=== PATIENT | male | born 1950 | race Caucasian/White ===

== ENCOUNTER 2019-11-14 22:10 | Emergency (ER) | payer MEDICARE, BC ==
[2019-11-14 22:15] VITALS: BP 139/74; PULSE 83
[2019-11-14] MEDS ORDERED: Sodium Chloride 0.9% 10 ML Syringe FLUSH PRN (22:18)
[2019-11-14 22:45] LABS: PTT,PARTIAL THROMBOPLSTIN TIME 24.5 SEC (24.5-32.8)
[2019-11-14] MEDS ORDERED: Lactated Ringers 1,000 ML IV ONE (23:13)
--- NOTE | 2019-11-14 23:27 | EDM.PDOC ---
ED HPI GENERAL MEDICAL PROBLEM - General Chief Complaint: Respiratory Problem Stated Complaint: shortness of breath Time Seen by Provider: 11/14/19 22:10 Source of Information: Reports: Patient, Old Records ([facility] chart/EMR) History Limitations: Reports: No Limitations - History of Present Illness INITIAL COMMENTS - FREE TEXT/NARRATIVE: Patient drove himself to the emergency room via private automobile for evaluation of progressive mild dyspnea during the last couple of days with nonproductive cough, however no known exposure to infection or fever. The patient denies any chest pain/pressure, heart flutter, dizziness, orthostasis, orthopnea, diaphoresis, paresthesias, recent decreased exercise tolerance, or any other anginal-type symptoms. No recent history of abdominal pain, heartburn, nausea, diarrhea, melena, gross hematochezia, or any food intolerance, including fatty foods, etc.. The patient did use his nebulizer therapy this morning with his inhaler used shortly prior to arrival to this facility. He denies any specific pain or discomfort. Onset: Gradual Onset Date: 11/12/19 Duration: Getting Worse, Intermittent Location: Reports: Other (No pain) Quality: Reports: Same as Previous Episode Improves with: Reports: None Worsens with: Reports: None Context: Reports: Other (As above). Denies: Sick Contact, Trauma Associated Symptoms: Reports: Cough, Shortness of Breath. Denies: Confusion, Chest Pain, cough w sputum, Diaphoresis, Fever/Chills, Headaches, Loss of Appetite, Malaise, Nausea/Vomiting, Weakness Treatments QUEBRACHO TANNER: Reports: Other Medication(s) (As above) - Related Data Allergies Allergy/AdvReac Type Severity Reaction Status Date / Time morphine Allergy Itching Verified 03/05/16 13:10 Home Meds: Home Meds Acetaminophen with Codeine [Tylenol with Codeine #3 Tablet] 1 each PO Q4HR PRN 03/05/16 [History] Albuterol [Proventil Neb Soln] 0.63 mg NEB Q4HRRT 03/05/16 [History] Aspirin [Ecotrin EC] 81 mg PO DAILY 03/05/16 [History] Clopidogrel [Plavix] 75 mg PO DAILY 03/05/16 [History] Isosorbide Mononitrate [Imdur] 60 mg PO DAILY 03/05/16 [History] Metoprolol Succinate [Toprol XL 50mg] 50 mg PO DAILY 03/05/16 [History] Nitroglycerin [Nitrostat] 0.4 mg SL ASDIRECTED PRN 03/05/16 [History] Omeprazole Magnesium [Prilosec Otc] 20 mg PO BID 03/05/16 [History] Terazosin [Hytrin] 2 mg PO BEDTIME 03/05/16 [History] allopurinoL [Allopurinol] 300 mg PO DAILY 03/05/16 [History] atorvaSTATin [Lipitor] 40 mg PO BEDTIME 03/05/16 [History] Arformoterol [Brovana] 2 ml IH BID 11/15/19 [History] Budesonide [Pulmicort] 0.5 mg IH BID 11/15/19 [History] Dextromethorphan/guaiFENesin [Mucinex DM ER 600-30 MG] 1 tab PO BID #20 tab.er 11/15/19 [Rx] Past Medical History HEENT History: Reports: Cataract, Hard of Hearing, Impaired Vision, Other (See Below). Denies: Allergic Rhinitis, Glaucoma, Macular Degeneration, Otitis Media, Retinal Detachment Other HEENT History: The patient wears glasses, mild beginning bilateral presbycusis with no current therapy, developing cataracts with no surgery to this point Cardiovascular History: Reports: Arrhythmia, CAD, High Cholesterol, Hypertension, PTCA, Stents, Other (See Below). Denies: Afib, Aneurysm, Blood Clots/VTE/DVT, Bypass, Cardiomyopathy, Heart Failure, Heart Murmur, GA, PVD Other Cardiovascular History: Sinus arrhythmia, heart procedures as below Respiratory History: Reports: Bronchitis, Recurrent, COPD, Intubation, Previous, Pneumonia, Recurrent, Pulmonary Fibrosis. Denies: Intubation, Difficult, PE, Pneumothorax, Sleep Apnea, TB Gastrointestinal History: Reports: GERD, PUD. Denies: Bowel Obstruction, Celiac Disease, Cholelithiasis, Chronic Constipation, Chronic Diarrhea, Colon Polyp, Fecal Incontinence, Gastritis, GI Bleed, Hepatitis, Inflammatory Bowel Disease, Irritable Bowel Syndrome, Jaundice, Pancreatitis Genitourinary History: Reports: BPH. Denies: Acute Renal Failure, Chronic Renal Insuffiency, Renal Calculus, Retention, Urinary, STD, Urinary Incontinence, UTI, Recurrent Musculoskeletal History: Reports: Arthritis, Gout, Osteoarthritis, Other (See Below). Denies: Back Pain, Chronic, Fracture, Neck Pain, Chronic, RA, SLE Other Musculoskeletal History: Compartment syndrome of the left forearm requiring surgery as below, bilateral carpal tunnel syndrome with no previous surgery, traumatic injury in April 2006 resulting in decreased range of motion of digits #3 and 4 of the left hand Neurological History: Reports: None. Denies: Cerebral Aneurysms, CVA, Headaches, Chronic, Head Trauma, Migraines, MS, Parkinson's, Seizure, TIA Psychiatric History: Reports: None. Denies: Abuse, Victim of, ADD, Addiction, Anxiety, Depression, Psych Hospitalization(s), PTSD, Suicide Attempt, Suicidal Ideation Endocrine/Metabolic History: Reports: Other (See Below). Denies: Diabetes, Type I, Diabetes, Type II, Diabetes Mellitus, Type 3c, Hypothyroidism, IDDM Other Endocrine/Metabolic History: History of borderline hyperglycemia per medical records treated with diet Hematologic History: Reports: None. Denies: Anemia, Blood Transfusion(s), Iron Deficiency Immunologic History: Reports: None. Denies: AIDS, HIV, SLE Oncologic (Cancer) History: Reports: None. Denies: Colon, Hodgkin's Lymphoma, Leukemia, Lymphoma, Malignant Melanoma, Non-Hodgkin's Lymphoma, Prostate, Squamous Cell Carcinoma Dermatologic History: Reports: None. Denies: Eczema, Psoriasis - Infectious Disease History Infectious Disease History: Reports: Chicken Pox, Measles, Mumps. Denies: C- Difficile, Meningitis, Mononucleosis, MRSA, Novel Coronavirus, Pertussis (Whooping Cough), Rheumatic Fever, Rubella, Scarlet Fever, Shingles, TB, VRE - Past Surgical History Head Surgeries/Procedures: Reports: None HEENT Surgical History: Reports: Adenoidectomy, Oral Surgery, Tonsillectomy, Other (See Below). Denies: Cataract Surgery, Eye Surgery, Laser Surgery, LASIK, Myringotomy w Tube(s), Naso-Sinus Surgery Other HEENT Surgeries/Procedures: [place] teeth extraction 4 at about age 28 with additional multiple teeth extractions Cardiovascular Surgical History: Reports: Coronary Artery Stent, Percutaneous Transluminal Angioplasty, Other (See Below). Denies: Varicose Other Cardiovascular Surgeries/Procedures: PTCA/stent of the inferior LAD in April 2006. PTCA/stent of the left main artery on 12/31/15. Respiratory Surgical History: Reports: None. Denies: Thoracentesis GI Surgical History: Reports: Appendectomy, Colonoscopy, Other (See Below). Denies: Cholecystectomy, EGD, Hernia, Abdominal, Hernia, Inguinal, Hernia Repair/Other, Polypectomy Other GI Surgeries/Procedures: Appendectomy at age 17. Male Surgical History: Reports: Circumcision, Vasectomy, Other (See Below) Other Male Surgeries/Procedures: Circumcision as an infant. Vasectomy at about age 33. Endocrine Surgical History: Reports: None. Denies: Thyroid Biopsy Neurological Surgical History: Reports: None. Denies: C-Spine, Discectomy, Laminectomy, Lumbar Spine, Sacral Spine, Scoliosis, Spinal Fusion, Thoracic Spine Musculoskeletal Surgical History: Reports: Other (See Below). Denies: Arthroscopic Procedure, Carpal Tunnel, Ganglion Cyst, Joint Replacement, ORIF, Shoulder Surgery Other Musculoskeletal Surgeries/Procedures:: Left forearm fasciotomy secondary to compartment syndrome from injury in April 2006. Oncologic Surgical History: Reports: None Dermatological Surgical History: Reports: None - Past Imaging History Past Imaging History: Reports: Angiography (Last heart catheterization on 12/31/15 with ejection fraction of 65%.), Stress Testing (Low-level cardiac stress test on 01/13/16.) Social & Family History - Family History HEENT: Reports: None. Denies: Glaucoma, Macular Degeneration, Retinal Detachment Cardiac: Reports: Aneurysm, CAD, Heart Failure, Hypertension, GA, PVD/COD, Other (See Below) Other Cardiac Family History: Mother with coronary artery disease with fatal CHF at age 83. She also had bilateral carotid endarterectomy, paternal uncle with fatal GA at about age 37, maternal uncle with fatal GA in his 70s, hypertension in mother and maternal uncle, father with fatal rupture abdominal aortic aneurysm at age 69 Respiratory: Reports: COPD, Other (See Below). Denies: PE, Pneumothorax, Sleep Apnea Other Respiratory Family Hisory: Father with COPD with history of tobacco use GI: Reports: Diverticulosis : Reports: None. Denies: Renal Calculus, Renal Disease/Insufficiency OBGYN: Reports: None. Denies: Endometriosis, Recurrent Spontaneous Musculoskeletal: Reports: None. Denies: Gout, RA, SLE Neurological: Reports: None. Denies: Alzheimers Disease, Cerebral Aneurysms, CVA, Dementia, Migraines, Parkinson's, Seizure, TIA Psychiatric: Reports: None. Denies: Abuse, Victim of, ADD, ADHD, Anxiety, Depression, Psych Hospitalization(s), PTSD, Suicide Attempt Endocrine/Metabolic: Reports: None. Denies: Diabetes, Type I, Diabetes, type II, Diabetes Mellitus, Type 3c, Hypothyroidism, IDDM Hematologic: Reports: None. Denies: SLE Immunologic: Reports: None. Denies: AIDS, HIV, SLE Dermatologic: Reports: None. Denies: Eczema, Psoriasis Oncologic: Reports: Colon, Lung, Metastatic, Other (See Below). Denies: Hodgkin's Lymphoma, Leukemia, Non-Hodgkin's Lymphoma, Prostate, Skin Other Oncologic Family History: Mother with history of metastatic lung cancer likely secondary to tobacco use, maternal grandfather with fatal stomach cancer in his 80s, paternal uncle with possible fatal cancer at age 70, maternal uncle with colon cancer in his 70s - Tobacco Use Smoking Status *Q: Former Smoker Tobacco Use Within Last Twelve Months: No Years of Tobacco use: 4 Packs/Tins Daily: 4 Packs/Tins Daily Comment: The patient smoked 14 packs per day between ages 17 and 21. Subsequent chewing tobacco use of one can per week for about 6 years with last cigarette use in 1972 and chewing tobacco use in 2005. Used Tobacco, but Quit: Yes Smoking Cessation Information Provided To Patient: No Second Hand Smoke Exposure: No Second Hand Smoke Education Provided: No - Caffeine Use Caffeine Use: Reports: Soda. Denies: Coffee, Energy Drinks, Tea Caffeine Use Comment: 2-3 sodas per day - Alcohol Use Alcohol Use History: Yes Days Per Week of Alcohol Use: 7 Number of Drinks Per Day: 3 Number of Drinks Per Day Comment: Usually beer. No previous DWIs, problems with alcohol abuse, etc. Total Drinks Per Week: 21 Alcohol Use in Last Twelve Months: Yes Alcohol Use Frequency: Daily - Recreational Drug Use Recreational Drug Use: Yes Drug Use in Last 12 Months: No Recreational Drug Type: Reports: Marijuana/Hashish (Experimentation in 1971). 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 No: Normal Teeth (Multiple missing teeth; dentition and somewhat poor repair), Dysphagia, Perioral Cyanosis Head: Atraumatic, Normocephalic. No: Facial Swelling, Facial Tenderness, Sinus Tenderness Neck: Supple, Non-Tender, Full Range of Motion, Carotid Bruit (Bilateral carotid bruitsmild). No: Lymphadenopathy (L), Lymphadenopathy (R), Thyromegaly Respiratory/Chest: No Respiratory Distress, Lungs Clear, Normal Breath Sounds, No Accessory Muscle Use, Chest Non-Tender. No: Pleural Rub, Retractions Cardiovascular: Normal Peripheral Pulses, Regular Rate, Rhythm, No Edema, No Gallop, No JVD, No Murmur, No Rub. No: Gallop/S3, Gallop/S4, Friction Rub Peripheral Pulses: 2+: Radial (L), Radial (R) GI/Abdominal: Normal Bowel Sounds, Soft, Non-Tender, No Organomegaly, No D istention, No Abnormal Bruit, No Mass (Male) Exam: Deferred Rectal (Males) Exam: Deferred Back Exam: Normal Inspection, Full Range of Motion. No: CVA Tenderness (L), CVA Tenderness (R) Extremities: Normal Inspection, Normal Range of Motion, Non-Tender, No Pedal Edema, Normal Capillary Refill. No: Arlene's Sign Neurological: Alert, Oriented, CN II-XII Intact, Normal Cognition, Normal Gait, No Motor/Sensory Deficits Psychiatric: Anxious (Moderate). No: Depressed Mood Skin Exam: Warm, Dry, Intact, Normal Color, No Rash. No: Diaphoretic, Ecchymosis, Petechiae, Wound/Incision Lymphatic: No Adenopathy Course - Vital Signs Last Recorded V/S: Last Vital Signs Temp 36.6 C 11/14/19 22:10 Pulse 83 11/14/19 22:10 Resp 20 11/14/19 22:10 BP 139/74 11/14/19 22:10 Pulse Ox 98 11/14/19 22:18 Vital Signs - 24 hr 11/14/19 11/14/19 22:10 22:18 Temperature [ 36.6 C Oral] Pulse, 83 Peripheral [ Left Pulse Oximetry] Respiratory 20 Rate Blood Pressure 139/74 [Left Upper Arm ] O2 Sat by Pulse 99 Oximetry O2 Sat by Pulse 98 Oximetry [Room Air] - Orders/Labs/Meds Orders: Active Orders 24 hr Category Date Time Status Cardiac Monitoring [RC] CONTINUOUS Care 11/14/19 22:18 Active Communication Order [RC] ROUTINE Care 11/14/19 22:18 Active Oxygen Therapy, ED [RC] PRN Care 11/14/19 22:18 Active Peripheral IV Care [RC] . DIRECTED Care 11/14/19 22:18 Active Pulse Oximetry [RC] CONTINUOUS Care 11/14/19 22:18 Active Up With Assistance [RC] ASDIRECTED Care 11/14/19 22:18 Active Chest 2V [CR] Stat Exams 11/14/19 22:18 Taken CULTURE BLOOD [BC] Stat Lab 11/14/19 22:25 Received CULTURE BLOOD [BC] Stat Lab 11/14/19 23:00 Received Blood Culture x2 Reflex Set [OM.PC] Stat Oth 11/14/19 22:18 Ordered Obtain Past Medical Record [OM.PC] Stat Oth 11/14/19 22:18 Active Peripheral IV Insertion Adult [OM.PC] Stat Oth 11/14/19 22:18 Ordered Resuscitation Status Routine Resus Stat 11/14/19 22:18 Ordered Labs: Laboratory Tests 11/14/19 11/14/19 11/14/19 Range/Units 22:25 22:25 22:25 WBC 3.8 L (4.0-10.2) K/uL RBC 4.03 L (4.33-5.41) M/uL Hgb 12.7 L (13.1-16.8) g/dL Hct 36.8 L (39.0-49.0) % MCV 91.3 D (84.0-98.0) fL MCH 31.5 (28.2-33.3) pg MCHC 34.5 (31.7-36.0) g/dL RDW 12.7 (11.2-14.1) % Plt Count 146 L (150-350) K/uL Neut % (Auto) 45.0 (45.0-80.0) % Lymph % (Auto) 41.4 (10.0-50.0) % [place] % (Auto) 10.9 (2.0-14.0) % Eos % (Auto) 1.9 (0.0-5.0) % Baso % (Auto) 0.8 (0.0-2.0) % Neut # (Auto) 1.70 (1.40-7.00) K/uL Lymph # (Auto) 1.56 (0.50-3.50) K/uL [place] # (Auto) 0.41 (0.00-1.00) K/uL Eos # (Auto) 0.07 (0.00-0.50) K/uL Baso # (Auto) 0.03 (0.00-0.20) K/uL PT 9.9 (9.5-12.0) SEC INR 1.0 APTT 24.5 (24.5-32.8) SEC Sodium 137 (136-145) mmol/L Potassium 3.6 (3.5-5.1) mmol/L Chloride 103 (98-107) mmol/L Carbon Dioxide 23.2 (21.0-32.0) mmol/L BUN 11 (7-18) mg/dL Creatinine 0.85 (0.51-1.17) mg/dL Est Cr Clr Drug Dosing 79.71 mL/min Estimated GFR (MDRD) > 60 mL/min Glucose 102 (74-106) mg/dL Lactic Acid (0.4-2.0) mmol/L Calcium 8.5 (8.5-10.1) mg/dL Magnesium 1.8 (1.8-2.4) mg/dL Total Bilirubin 0.4 (0.2-1.0) mg/dL AST 25 (15-37) U/L ALT 26 (12-78) U/L Alkaline Phosphatase 56 (46-116) IU/L Creatine Kinase 142 (26-308) U/L Creatine Kinase Index 1.9 (0.0-2.5) % CK-MB (CK-2) 2.70 (0.00-3.60) ng/mL Troponin I 0.000 (0.000-0.056) ng/mL NT-Pro-B Natriuret Pep 86 (0-125) pg/mL Total Protein 6.8 (6.4-8.2) g/dL Albumin 3.7 (3.4-5.0) g/dL TSH, Ultra Sensitive 1.697 (0.358-3.740) mIU/mL 11/14/19 Range/Units 22:25 WBC (4.0-10.2) K/uL RBC (4.33-5.41) M/uL Hgb (13.1-16.8) g/dL Hct (39.0-49.0) % MCV (84.0-98.0) fL MCH (28.2-33.3) pg MCHC (31.7-36.0) g/dL RDW (11.2-14.1) % Plt Count (150-350) K/uL Neut % (Auto) (45.0-80.0) % Lymph % (Auto) (10.0-50.0) % [place] % (Auto) (2.0-14.0) % Eos % (Auto) (0.0-5.0) % Baso % (Auto) (0.0-2.0) % Neut # (Auto) (1.40-7.00) K/uL Lymph # (Auto) (0.50-3.50) K/uL [place] # (Auto) (0.00-1.00) K/uL Eos # (Auto) (0.00-0.50) K/uL Baso # (Auto) (0.00-0.20) K/uL PT (9.5-12.0) SEC INR APTT (24.5-32.8) SEC Sodium (136-145) mmol/L Potassium (3.5-5.1) mmol/L Chloride (98-107) mmol/L Carbon Dioxide (21.0-32.0) mmol/L BUN (7-18) mg/dL Creatinine (0.51-1.17) mg/dL Est Cr Clr Drug Dosing mL/min Estimated GFR (MDRD) mL/min Glucose (74-106) mg/dL Lactic Acid 2.4 H (0.4-2.0) mmol/L Calcium (8.5-10.1) mg/dL Magnesium (1.8-2.4) mg/dL Total Bilirubin (0.2-1.0) mg/dL AST (15-37) U/L ALT (12-78) U/L Alkaline Phosphatase (46-116) IU/L Creatine Kinase (26-308) U/L Creatine Kinase Index (0.0-2.5) % CK-MB (CK-2) (0.00-3.60) ng/mL Troponin I (0.000-0.056) ng/mL NT-Pro-B Natriuret Pep (0-125) pg/mL Total Protein (6.4-8.2) g/dL Albumin (3.4-5.0) g/dL TSH, Ultra Sensitive (0.358-3.740) mIU/mL Blood cultures 2 collected Sputum could not be collected Meds: Medications Discontinued Medications Generic Name Dose Route Start Last Admin Trade Name Freq PRN Reason Stop Dose Admin Guaifenesin/Dextromethorphan 1 tab 11/15/19 00:03 11/15/19 00:10 Mucinex Dm Er 600-30 Mg PO 11/15/19 00:04 1 tab ONETIME ONE Administration Lactated Ringer's 1,000 mls @ 999 mls/hr 11/14/19 23:13 11/14/19 23:59 Ringers, Lactated IV 11/15/19 00:13 999 mls/hr .BOLUS ONE Administration Methylprednisolone Acetate 80 mg 11/15/19 00:04 11/15/19 00:08 Depo-Medrol IM 11/15/19 00:05 80 mg ONETIME ONE Administration Sodium Chloride 10 ml 11/14/19 22:18 Saline Flush FLUSH ASDIRECTED PRN Keep Vein Open - Radiology Interpretation Free Text/Narrative:: Chest x-ray, PA and lateral, shows moderate to severe COPD changes with mild aortic valve calcification and prominence of the proximal aortic arch but no cardiomegaly, CHF, pulmonary infiltrates, pneumothorax, etc. Moderate osteoarthritic changes noted with a mild hiatal hernia. site monitor shows normal sinus rhythm with heart rate in the 70s 80s with no ectopy or arrhythmia. Departure - Departure Time of Disposition: : Disposition: Home, Self-Care 01 Condition: Good Clinical Impression: Peptic reflux disease, Elevated lactic acid level, Mixed anxiety depressive disorder Coronary artery disease Qualifiers: Coronary Disease-Associated Artery/Lesion type: [place] artery [place] vs. transplanted heart: [place] heart Associated angina: without angina Qualified Code(s): I25.10 - Atherosclerotic heart disease of [place] coronary artery without angina pectoris COPD (chronic obstructive pulmonary disease) Qualifiers: COPD type: emphysema Emphysema type: panlobular Qualified Code(s): J43.1 - Panlobular emphysema Hypertension Qualifiers: Hypertension type: essential hypertension Qualified Code(s): I10 - Essential (primary) hypertension Osteoarthritis Qualifiers: Osteoarthritis location: multiple joints Osteoarthritis type: primary Qualified Code(s): M15.0 - Primary generalized (osteo)arthritis - Discharge Information *PRESCRIPTION DRUG MONITORING PROGRAM REVIEWED*: Not Applicable *COPY OF PRESCRIPTION DRUG MONITORING REPORT IN PATIENT SANTIAGO: Not Applicable Prescriptions: Dextromethorphan/guaiFENesin [Mucinex DM ER 600-30 MG] 1 tab PO BID #20 tab.er Referrals: PCP,None [Primary Care Provider] - Forms: ED Department Discharge Additional Instructions: 1. Follow-up at the [facility] later today and before noon for reevaluation and recommended repeat lactic acid level 2. Otherwise directed compliance with your nebulizer and inhaler therapy on a 4 times a day basis with every 4 hours as needed as discussed 3. Immediately after this visit verify that your cellular telephone's voicemail has been activated and is empty. Also verify that your home telephone's answering machine is operating properly and has space to receive messages. Note that it is sometimes necessary for us to be able to contact you at a later date to discuss your medical care. 4. Please remember that we are ALWAYS here for you and want to answer any questions you may have. Feel free to call the hospital any time and we call you back ELOISE. Sepsis Event Note (ED) - Evaluation Sepsis Screening Result: No Definite Risk - Focused Exam Vital Signs: Vital Signs Temp Pulse Resp BP Pulse Ox Pulse Ox 11/14/19 22:18 98 11/14/19 22:10 36.6 C 83 20 139/74 99 - Problem List & Annotations (1) COPD (chronic obstructive pulmonary disease) SNOMED Code(s): 27940511 Code(s): J44.9 - CHRONIC OBSTRUCTIVE PULMONARY DISEASE, UNSPECIFIED Status: Chronic Priority: High Onset Date: 03/05/16 Annotation/Comment:: Mild exacerbation. Patient encouraged to remain compliant with his inhaler and nebulizer treatments. IM Depo-Medrol given. Additional Mucinex DM as a mucolytic agent. Close follow-up as per discharge instructions. The patient has had 3 recent negative COVID-19 evaluations by his history. No indication for antibiotic therapy at this time with mild leukopenia and no fever, etc. Qualifiers: COPD type: emphysema Emphysema type: panlobular Qualified Code(s): J43.1 - Panlobular emphysema (2) Elevated lactic acid level SNOMED Code(s): 1691575 Code(s): R79.89 - OTHER SPECIFIED ABNORMAL FINDINGS OF BLOOD CHEMISTRY Status: Acute Priority: High Onset Date: 11/14/19 Annotation/Comment:: [place] elevated lactic acid level with no clinical evidence of sepsis. Patient was loaded with 1 L of lactated Ringer's solution by means of IV bolus. No indication for antibiotic therapy at this time as above. Close follow-up as per discharge instructions. (3) Mixed anxiety depressive disorder SNOMED Code(s): 594079667 Code(s): F41.8 - OTHER SPECIFIED ANXIETY DISORDERS Status: Acute Priority: High Annotation/Comment:: Anxiety component to above symptoms. Observe closely by regular providers. (4) Coronary artery disease SNOMED Code(s): 28460096 Code(s): I25.10 - ATHSCL HEART DISEASE OF [place] CORONARY ARTERY W/O ANG PCTRS Status: Chronic Priority: Medium Annotation/Comment:: No chest pain or anginal type symptoms Qualifiers: Coronary Disease-Associated Artery/Lesion type: [place] artery [place] vs. transplanted heart: [place] heart Associated angina: without angina Qualified Code(s): I25.10 - Atherosclerotic heart disease of [place] coronary artery without angina pectoris (5) Hypertension SNOMED Code(s): 26494767 Code(s): I10 - ESSENTIAL (PRIMARY) HYPERTENSION Status: Chronic Priority: Medium Annotation/Comment:: Under good control in the emergency room Qualifiers: Hypertension type: essential hypertension Qualified Code(s): I10 - Essential (primary) hypertension (6) Osteoarthritis SNOMED Code(s): 311138439 Code(s): M19.90 - UNSPECIFIED OSTEOARTHRITIS, UNSPECIFIED SITE Status: Chronic Priority: Medium Annotation/Comment:: Stable by history with no recent history of gout attack Qualifiers: Osteoarthritis location: multiple joints Osteoarthritis type: primary Qualified Code(s): M89.49 - Other hypertrophic osteoarthropathy, multiple sites (7) Peptic reflux disease SNOMED Code(s): 564416051 Code(s): K21.9 - GASTRO-ESOPHAGEAL REFLUX DISEASE WITHOUT ESOPHAGITIS Status: Chronic Priority: Medium Annotation/Comment:: Stable by history. (8) Hyperlipidemia SNOMED Code(s): 83136819 Code(s): E78.5 - HYPERLIPIDEMIA, UNSPECIFIED Status: Chronic Priority: Medium Annotation/Comment:: Currently under therapy Qualifiers: Hyperlipidemia type: other hyperlipidemia Qualified Code(s): E78.49 - Other hyperlipidemia; E78.4 - Other hyperlipidemia - Problem List Review Problem List Initiated/Reviewed/Updated: Yes - My Orders Last 24 Hours: My Active Orders 11/14/19 22:18 Cardiac Monitoring [RC] CONTINUOUS Communication Order [RC] ROUTINE Oxygen Therapy, ED [RC] PRN Peripheral IV Care [RC] . DIRECTED Pulse Oximetry [RC] CONTINUOUS Up With Assistance [RC] ASDIRECTED Chest 2V [CR] Stat Blood Culture x2 Reflex Set [OM.PC] Stat Obtain Past Medical Record [OM.PC] Stat Peripheral IV Insertion Adult [OM.PC] Stat Resuscitation Status Routine 11/14/19 22:25 CULTURE BLOOD [BC] Stat 11/14/19 23:00 CULTURE BLOOD [BC] Stat - Assessment/Plan Last 24 Hours: My Active Orders 11/14/19 22:18 Cardiac Monitoring [RC] CONTINUOUS Communication Order [RC] ROUTINE Oxygen Therapy, ED [RC] PRN Peripheral IV Care [RC] . DIRECTED Pulse Oximetry [RC] CONTINUOUS Up With Assistance [RC] ASDIRECTED Chest 2V [CR] Stat Blood Culture x2 Reflex Set [OM.PC] Stat Obtain Past Medical Record [OM.PC] Stat Peripheral IV Insertion Adult [OM.PC] Stat Resuscitation Status Routine 11/14/19 22:25 CULTURE BLOOD [BC] Stat 11/14/19 23:00 CULTURE BLOOD [BC] Stat Assessment:: As above Plan: As above. Extensive precautions were given to the patient, who is in agreement with the treatment plan. See Patient Instructions for further treatment and plan.
[2019-11-14 23:31] LABS: CHLORIDE,CL 103 mmol/L (98-107); SODIUM,NA 137 mmol/L (136-145)
[2019-11-15] MEDS ORDERED: Dextromethorphan/guaiFENesin 600-30 MG Tab.ER PO ONE (00:03)
[2019-11-15] MEDS ORDERED: methylPREDNISolone Acetate 80 MG/ML SDV IM ONE (00:04)
== END 2019-11-15 01:01 | disposition home or self-care (01) ==
LOC: LL.ED 22:10
DX: J43.1 Panlobular emphysema (principal); I10 Essential (primary) hypertension; M15.0 Primary generalized (osteo)arthritis; I25.10 Atherosclerotic heart disease of native coronary artery without angina pectoris; K21.9 Gastro-esophageal reflux disease without esophagitis; R74.0 Nonspecific elevation of levels of transaminase and lactic acid dehydrogenase [LDH]; F41.8 Other specified anxiety disorders; E78.00 Pure hypercholesterolemia, unspecified; M10.9 Gout, unspecified; M32.9 Systemic lupus erythematosus, unspecified; Z87.891 Personal history of nicotine dependence; Z88.5 Allergy status to narcotic agent; Z79.82 Long term (current) use of aspirin; Z79.02 Long term (current) use of antithrombotics/antiplatelets; Z79.899 Other long term (current) drug therapy; Z95.5 Presence of coronary angioplasty implant and graft
CPT/HCPCS: 36415; 71046; 80053; 82550; 82553; 83605; 83735; 83880; 84443; 84484; 85025; 85610; 85730; 87040; 96372; 99285-25; A9270-GY; J1040; J7120

== ENCOUNTER 2021-11-14 15:01 | Emergency (ER) | payer MEDICARE, BC ==
[2021-11-14 16:38] LABS: ANION GAP 8.9 meq/L (7-15)
[2021-11-14] MEDS ORDERED: levETIRAcetam 500 MG Tab PO SCH (17:30)
[2021-11-14] MEDS ORDERED: fentaNYL 50 MCG/ML SDV IVPUSH ONE (17:31)
[2021-11-14] MEDS ORDERED: levETIRAcetam in NaCl (iso-os) 500 MG in Premix Bag 1 BAG IV ONE ×2 (17:31)
[2021-11-14 19:42] VITALS: BP 152/64; PULSE 74
== END 2021-11-14 18:15 ==
LOC: LL.ED 15:01
DX: S06.5X0A Traumatic subdural hemorrhage without loss of consciousness, initial encounter (principal); S00.01XA Abrasion of scalp, initial encounter; I25.10 Atherosclerotic heart disease of native coronary artery without angina pectoris; J44.9 Chronic obstructive pulmonary disease, unspecified; K21.9 Gastro-esophageal reflux disease without esophagitis; M10.9 Gout, unspecified; E78.00 Pure hypercholesterolemia, unspecified; I10 Essential (primary) hypertension; Z87.891 Personal history of nicotine dependence; Z95.5 Presence of coronary angioplasty implant and graft; Z79.82 Long term (current) use of aspirin; Z79.02 Long term (current) use of antithrombotics/antiplatelets; Z79.899 Other long term (current) drug therapy; W22.09XA Striking against other stationary object, initial encounter
CPT/HCPCS: 36415; 70450; 80053; 85025; 96374; 96375; 99284; 99285-25; J1953; J3010